=== PATIENT | male | born 1975 | race Two or more races ===

== ENCOUNTER 2016-10-31 14:12 | Emergency (ER) | payer SELFPAY ==
[~2016-10-31] VITALS: Ht 175.3 cm; Wt 68.0 kg
[2016-10-31] MEDS ORDERED: DiphenhydrAMINE 50mg/ml Inj IM ONE (14:15)
[2016-10-31] MEDS ORDERED: Haloperidol 5mg/ml Inj IM ONE (14:15)
[2016-10-31] MEDS ORDERED: LORazepam Inj 2mg/ml 1ml IM ONE (14:15)
[2016-10-31 16:00] LABS: ACETAMINOPHEN < 10 ug/mL (10-30); ALANINE AMINOTRANSFERASE 87 U/L (3-41); ALBUMIN/GLOBULIN RATIO 1.5 (1.0-2.7); ALCOHOL < 10 mg/dL; ANION GAP 21 (5-15); ASPARTATE AMINO TRANSFERASE 189 U/L (5-40); CALCIUM 9.4 mg/dL (8.6-10.2); CARBON DIOXIDE 21 mEQ/L (20-30); CHLORIDE 101 mEQ/L (98-107); CREATININE 1.5 mg/dL (0.7-1.2); GLOMERULAR FILTRATION RATE 51.8 mL/min (>60); HEMOLYSIS 6; MEAN CORPUSCULAR HEMOGLOBIN 32.4 PG (27.0-31.0); MEAN CORPUSCULAR HGB CONC 33.8 G/DL (32.0-36.0); MEAN CORPUSCULAR VOLUME 96 FL (80-99); MEAN PLATELET VOLUME 7.1 FL (6.5-10.1); PLATELET COUNT 212 K/UL (150-450); POTASSIUM 3.9 mEQ/L (3.4-4.9); RED BLOOD COUNT 4.42 M/UL (4.70-6.10); RED CELL DISTRIBUTION WIDTH 12.2 % (11.6-14.8); SODIUM 143 mEQ/L (135-145); TOTAL PROTEIN 7.8 g/dL (6.6-8.7); WHITE BLOOD COUNT 9.6 K/UL (4.8-10.8)
[2016-10-31 16:46] LABS: BAND NEUTROPHILS % (MANUAL) 2 % (0-8); BASOPHILS % (MANUAL) 0 % (0-2); EOSINOPHILS % (MANUAL) 0 % (0-3); LYMPHOCYTES % (MANUAL) 9 % (20-45); NEUTROPHILS % (MANUAL) 84 % (45-75); PLATELET ESTIMATE ADEQUATE; PLATELET MORPHOLOGY NORMAL; TOTAL CELLS COUNTED 100
[2016-10-31 17:31] VITALS: BP 126/76
[2016-10-31 18:32] LABS: ALANINE AMINOTRANSFERASE 74 U/L (3-41); ALBUMIN/GLOBULIN RATIO 1.6 (1.0-2.7); ANION GAP 18 (5-15); ASPARTATE AMINO TRANSFERASE 154 U/L (5-40); CALCIUM 8.8 mg/dL (8.6-10.2); CARBON DIOXIDE 21 mEQ/L (20-30); CHLORIDE 105 mEQ/L (98-107); CREATININE 1.3 mg/dL (0.7-1.2); GLOMERULAR FILTRATION RATE > 60 mL/min (>60); HEMOLYSIS 3; SODIUM 144 mEQ/L (135-145); TOTAL PROTEIN 6.8 g/dL (6.6-8.7)
--- NOTE | 2016-10-31 21:25 | Emergency Room Report ---
History of Present Illness General Chief Complaint: Behavioral Complaint Source: EMS Present Illness HPI 41-year-old male presents ED for evaluation. Patient brought in by [employer] and EMS for aggressive behavior. Patient was found on the streets with agitated behavior. Bystanders called 911. Upon arrival patient is screaming and yelling. Patient has known history of methamphetamine use. She is unwilling to provide any additional history at this time. Patient is handcuffed. No reported suicidal or homicidal ideation. No other aggravating or relieving factors. No associated symptoms Allergies: Coded Allergies: UNABLE TO ASSESS (Unverified , 10/31/16) Patient History Past Medical History: none Past Surgical History: none Pertinent Family History: none Social History: Denies: alcohol use, drug use, smoking Immunizations: UTD Reviewed Nursing Documentation: PMH: Agreed, PSxH: Agreed Review of Systems All Other Systems: negative except mentioned in HPI Physical Exam Vital Signs Date Time Temp Pulse Resp B/P Pulse Ox O2 Delivery O2 Flow Rate FiO2 10/31/16 14:07 108 16 142/86 99 10/31/16 17:31 97.5 Room Air Sp02 EP Interpretation: reviewed, normal General Appearance: non-toxic, other - agitated/combative Head: normocephalic Eyes: bilateral eye PERRL, bilateral eye normal inspection ENT: normal ENT inspection Neck: normal inspection Respiratory: chest non-tender, lungs clear, normal breath sounds, speaking full sentences Cardiovascular #1: tachycardia Gastrointestinal: normal inspection Rectal: deferred Genitourinary: no CVA tenderness Musculoskeletal: normal inspection Neurologic: other - agitated/combative Psychiatric: other - combative Skin: normal inspection Lymphatic: normal inspection Medical Decision Making Diagnostic Impression: Primary Impression: Behavioral change Additional Impression: Substance abuse ER Course Hospital Course 41-year-old M presents to ED with altered mental status. Active aggressively, in police custody Differential diagnoses include: Psychosis, EtOH, drug abuse Clinical course patient placed on stretcher. On monitoring specialist. After initial history and physical ordered haldol/ativan/benedryl after patient adequately sedated I ordered labs, IV fluids Labs reviewed-BUN/Cr elevated, no leukocytosis, hemoglobin/hematocrit stable, tox panel + for multilple substances Patient given IV fluid boluses and repeat labs show improvement in BUN and creatinine Patient is a longer in police custody. Patient is now awake alert oriented x3, ambulating i. I feel this is a highly complex case requiring extensive working including EKG/Rhythm strip, Xray/CT/US, Blood/urine lab work, repeat exams while in ED, and administration of strong opiates/narcotics for pain control, admission to hospital or close patient follow up. Diagnosis - behavioral change, substance abuse Stable and discharged to home. Followup with PMD. Return to ED if symptoms recur or worsen Labs Test 10/31/16 15:15 10/31/16 15:35 10/31/16 17:57 10/31/16 20:53 White Blood Count 9.6 K/UL (4.8-10.8) Red Blood Count 4.42 M/UL (4.70-6.10) Hemoglobin 14.3 G/DL (14.2-18.0) Hematocrit 42.4 % (42.0-52.0) Mean Corpuscular Volume 96 FL (80-99) Mean Corpuscular Hemoglobin 32.4 PG (27.0-31.0) Mean Corpuscular Hemoglobin Concent 33.8 G/DL (32.0-36.0) Red Cell Distribution Width 12.2 % (11.6-14.8) Platelet Count 212 K/UL (150-450) Mean Platelet Volume 7.1 FL (6.5-10.1) Neutrophils (%) (Auto) % (45.0-75.0) Lymphocytes (%) (Auto) % (20.0-45.0) Monocytes (%) (Auto) % (1.0-10.0) Eosinophils (%) (Auto) % (0.0-3.0) Basophils (%) (Auto) % (0.0-2.0) Differential Total Cells Counted 100 Neutrophils % (Manual) 84 % (45-75) Lymphocytes % (Manual) 9 % (20-45) Monocytes % (Manual) 5 % (1-10) Eosinophils % (Manual) 0 % (0-3) Basophils % (Manual) 0 % (0-2) Band Neutrophils 2 % (0-8) Platelet Estimate Adequate Platelet Morphology Normal Red Blood Cell Morphology Normal Sodium Level 143 mEQ/L (135-145) 144 mEQ/L (135-145) Potassium Level 3.9 mEQ/L (3.4-4.9) 4.0 mEQ/L (3.4-4.9) Chloride Level 101 mEQ/L (98-107) 105 mEQ/L (98-107) Carbon Dioxide Level 21 mEQ/L (20-30) 21 mEQ/L (20-30) Anion Gap 21 (5-15) 18 (5-15) Blood Urea Nitrogen 56 mg/dL (7-23) 51 mg/dL (7-23) Creatinine 1.5 mg/dL (0.7-1.2) 1.3 mg/dL (0.7-1.2) Estimat Glomerular Filtration Rate 51.8 mL/min (>60) > 60 mL/min (>60) Glucose Level 143 mg/dL (74-106) 135 mg/dL (74-106) Calcium Level 9.4 mg/dL (8.6-10.2) 8.8 mg/dL (8.6-10.2) Total Bilirubin 1.0 mg/dL (0.0-1.2) 0.8 mg/dL (0.0-1.2) Aspartate Amino Transf (AST/SGOT) 189 U/L (5-40) 154 U/L (5-40) Alanine Aminotransferase (ALT/SGPT) 87 U/L (3-41) 74 U/L (3-41) Alkaline Phosphatase 61 U/L (40-129) 53 U/L (40-129) Total Protein 7.8 g/dL (6.6-8.7) 6.8 g/dL (6.6-8.7) Albumin 4.7 g/dL (3.5-5.2) 4.2 g/dL (3.5-5.2) Globulin 3.1 g/dL 2.6 g/dL Albumin/Globulin Ratio 1.5 (1.0-2.7) 1.6 (1.0-2.7) Salicylates Level < 1 mg/dL (10-30) Acetaminophen Level < 10 ug/mL (10-30) Serum Alcohol < 10 mg/dL Urine Opiates Screen Negative (NEGATIVE) Urine Barbiturates Screen Negative (NEGATIVE) Phencyclidine (PCP) Screen Negative (NEGATIVE) Urine Amphetamines Screen Positive (NEGATIVE) Urine Benzodiazepines Screen Negative (NEGATIVE) Urine Cocaine Screen Negative (NEGATIVE) Urine Marijuana (THC) Screen Positive (NEGATIVE) Last Vital Signs Date Time Temp Pulse Resp B/P Pulse Ox O2 Delivery O2 Flow Rate FiO2 10/31/16 17:31 97.5 106 18 126/76 97 Room Air Status: improved Disposition: HOME, SELF-CARE Condition: Stable Referrals: NOT CHOSEN IPA/,REFERRING (PCP) GABRIELLE SILVA M.D. October 31, 2016 21:25
[2016-10-31 21:42] LABS: ALANINE AMINOTRANSFERASE 47 U/L (3-41); ALBUMIN/GLOBULIN RATIO 1.5 (1.0-2.7); ANION GAP 15 (5-15); ASPARTATE AMINO TRANSFERASE 94 U/L (5-40); CARBON DIOXIDE 17 mEQ/L (20-30); CHLORIDE 114 mEQ/L (98-107); CREATININE 0.8 mg/dL (0.7-1.2); GLOMERULAR FILTRATION RATE > 60 mL/min (>60); HEMOLYSIS 4; POTASSIUM 2.9 mEQ/L (3.4-4.9); SODIUM 146 mEQ/L (135-145); TOTAL PROTEIN 4.6 g/dL (6.6-8.7)
[2016-10-31 21:52] LABS: CALCIUM 5.7 mg/dL (8.6-10.2)
[2016-10-31] MEDS ORDERED: Calcium Gluconate 1gm/10ml vial IVP ONE (22:30)
[2016-11-01 03:14] VITALS: BP 126/76
== END 2016-11-01 03:17 | disposition home or self-care (01) ==
LOC: EDBD 14:12 → EMR 14:32
DX: F91.8 Other conduct disorders (principal); F15.10 Other stimulant abuse, uncomplicated; R41.82 Altered mental status, unspecified; F12.10 Cannabis abuse, uncomplicated
CPT/HCPCS: 36415; 80053; 80300; 85007; 85025; 96360; 96361; 96372; 96374; 96375; 99284; G0480; J0610; J1200; J1630; J7040; 80329; J8499